=== PATIENT | male | born 1935 | race Caucasian/White ===

== ENCOUNTER 2023-10-03 22:01 | Emergency (ER) | payer MEDICARE, SELFPAY ==
--- NOTE | ~2023-10-03 | CT_ITS ---
EXAMINATION: CT brain wo con DATE: 10/04/2023 00:38 INDICATION: Head injury. TECHNIQUE: Computed tomography (CT) of the head was performed without intravenous contrast. The mA wa s adjusted according to patient size. Iterative reconstruction technique was employed. The dose-lengt h product was 605.33 mGy-cm. COMPARISON: None FINDINGS: There are old lacunar infarcts in the bilateral thalami and bilateral basal ganglia. There are scattered areas of low attenuation in the cerebral white matter. There is no intracranial hemorrh age, acute infarction, or abnormal intracranial mass lesion. The ventricles are normal in size. There are likely changes of ocular lens replacement surgeries. There is mild mucosal thickening in the eth moid sinuses. The mastoid air cells are normal. There is cerumen in the external auditory canals. IMPRESSION: 1. 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 2. Moderate nonspecific cerebral white matter disease, which likely represents chronic small vessel i schemic disease. Reviewed, dictated and finalized at location A. IMPRESSION: 1. 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 2. Moderate nonspecific cerebral white matter disease, which likely represents chronic small vessel ischemic disease.
--- NOTE | ~2023-10-03 | XR_ITS ---
EXAMINATION: XR chest 1V portable DATE: 10/04/2023 00:40 INDICATION: Weakness. Fall. TECHNIQUE: A single frontal view of the chest was obtained. COMPARISON: None. FINDINGS: There is mild atelectasis at the lung bases. No pleural effusion or pneumothorax. The heart size is normal. A skinfold overlies right hemithorax. IMPRESSION: 1. Mild atelectasis at the lung bases. Reviewed, dictated and finalized at location A.
[2023-10-03 22:04] VITALS: BP 112/62; PULSE 81; RESP 18; TEMP 36.1; O2SAT 100
[2023-10-03 23:59] VITALS: PULSE 91
[2023-10-04 00:04] VITALS: BP 121/77; PULSE 83; RESP 17; O2SAT 99
--- NOTE | 2023-10-04 00:13 | ECG_ITS ---
Test Date: 2023-10-04 01:20:16 Measurements Intervals [place] Rate: 73 P: 28 DC: 153 QRS: -22 QRSD: 90 T: 9 QT: 342 QTc: 379 Interpretive Statements SINUS RHYTHM WITH OCCASIONAL VENTRICULAR PREMATURE COMPLEXES POSSIBLE ANTERIOR MYOCARDIAL INFARCTION , OF INDETERMINATE AGE [30 ms Q WAVE IN V3/V4, OR R < 0.2 mV IN V4] No previous ECG available for comparison Electronically Signed On 10-04-2023 14:45:09 CDT by Elyse Humphries M.D.
--- NOTE | 2023-10-04 00:35 | ED_ITS ---
HPI - General Adult General Chief complaint: Weakness Stated complaint: WEAKNESS, INCREASING FALLS Time Seen by Provider: 10/04/23 00:05 History of Present Illness HPI narrative: patient 88-year-old gentleman presents emergency department chief complaint of falls. Patient is resident of [facility] and has had several falls today the patient states he lost his balance had no loss of consciousness reports he was using his walker the patient reports he does fall a fair amount of times the patient is not on blood thinners reports that he really does not know why they sent him to the emergency department. Related Data Allergies Allergy/AdvReac Type Severity Reaction Status Date / Time No Known Allergies Allergy Verified 10/04/23 00:03 Review of Systems Review of Systems: A 10 system review of systems was completed on the patient and is negative except for what is stated in the HPI. Nursing and ancillary documentation was reviewed. Exam Narrative: GENERAL: Well-appearing, well-nourished, and in no acute distress. HEAD: Normocephalic, There is a small abrasion present left forehead. EYES: PERRLA and EOMI. ENT: Nares clear, no rhinorrhea or epistaxis. Mucous membranes moist. NECK: Supple. CHEST: Clear to auscultation. No respiratory distress. HEART: Regular rate and rhythm. No murmur heard. Normal peripheral pulses. ABDOMEN: Soft, nontender, nondistended, normal active bowel sounds. EXTREMITIES: Normal range of motion there is bruising present to the left forearm there is a small skin tear present on the left forearm. No edema. SKIN: Warm, dry, no rash. NEURO: No focal deficits. Alert and oriented x3. PSYCH: Normal mood and affect. Course Vital Signs Vital signs: Vital Signs Temperature 36.1 C L 10/03/23 22:04 Pulse Rate 81 10/03/23 22:04 Respiratory Rate 18 10/03/23 22:04 Blood Pressure 112/62 10/03/23 22:04 Pulse Oximetry 100 10/03/23 22:04 Oxygen Delivery Room Air 10/03/23 22:04 Temperature 36.1 C L 10/03/23 22:04 Pulse Rate 73 10/04/23 04:18 Respiratory Rate 14 10/04/23 04:18 Blood Pressure 115/84 10/04/23 04:18 Pulse Oximetry 98 10/04/23 04:18 Oxygen Delivery Room Air 10/03/23 22:04 Medical Decision Making MDM Narrative Medical decision making narrative: differential diagnosis includes head injury, intracranial hemorrhage, electrolyte abnormality, dehydration laboratory studies showed a normal CBC normal CMP chest x-ray showed no focal infiltrate CT head showed no acute hemorrhage Vital Signs Vital Signs: Vital Signs Temperature 36.1 C L 10/03/23 22:04 Pulse Rate 81 10/03/23 22:04 Respiratory Rate 18 10/03/23 22:04 Blood Pressure 112/62 10/03/23 22:04 Pulse Oximetry 100 10/03/23 22:04 Oxygen Delivery Room Air 10/03/23 22:04 Temperature 36.1 C L 10/03/23 22:04 Pulse Rate 73 10/04/23 04:18 Respiratory Rate 14 10/04/23 04:18 Blood Pressure 115/84 10/04/23 04:18 Pulse Oximetry 98 10/04/23 04:18 Oxygen Delivery Room Air 10/03/23 22:04 Lab Data 10/04/23 00:58 10/04/23 00:58 Labs: Lab Results 10/04/23 Range/Units 00:58 WBC 8.8 (4.5-10.0) K/mm3 RBC 3.57 L (4.6-6.20) M/mm3 Hgb 10.6 L (14.0-18.0) g/dL Hct 33.3 L (42.0-52.0) % MCV 93.3 (80-100) fl MCH 29.7 (26-34) pg MCHC 31.8 L (32-36) g/dl RDW 14.0 (11.5-14.5) % Plt Count 204 (150-375) k/mm3 MPV 9.6 (7.4-10.4) fl Immature Gran % (Auto) 0.6 H (0-0.5) % Neut % (Auto) 78.0 H (45.5-73.1) % Lymph % (Auto) 9.8 L (18.3-44.2) % [place] % (Auto) 9.1 H (2.6-8.5) % Eos % (Auto) 2.0 (0-4.4) % Baso % (Auto) 0.5 (0.2-1.2) % Lymph # (Auto) 0.86 L (0.9-3.2) K/mm3 [place] # (Auto) 0.8 H (0.1-0.6) K/mm3 Eos # (Auto) 0.2 (0-0.3) K/mm3 Baso # (Auto) 0.0 (0.0-0.1) K/mm3 Abs Immat Gran (auto) 0.05 H (0.00-0.031) K/mm3 Absolute Neuts (auto) 6.9 H (1.3-6.7) K/mm3 Absolute Nucleated RBC 0.000 (0.0-0.012) K/mm3 Nucleated RBC % 0.0 (0.0-0.2) % Sodium 137 (137-145) mmol/L Potassium 4.1 (3.4-5.0) mmol/L Chloride 102 (98-107) mmol/L Carbon Dioxide 29 (22-30) mmol/L Anion Gap 6 (4-12) mmol/L BUN 29 H (9-20) mg/dL Creatinine 1.30 (0.7-1.3) mg/dL Estim Creat Clear Calc 36 ml/min Estimated GFR 52 L (59 - ) Glucose 106 (65-110) mg/dL Lactic Acid 0.8 (0.7-2.0) mmol/L Calcium 8.6 (8.4-10.2) mg/dL Total Bilirubin 0.4 (0.2-1.3) mg/dL AST 23 (17-59) U/L ALT 14 (6-50) U/L Alkaline Phosphatase 87 (38-126) U/L Total Protein 7.0 (6.3-8.2) g/dL Albumin 3.0 L (3.5-5.1) g/dL Discharge Plan Discharge Clinical Impression: Head injury, Abrasion of scalp, Skin tear of left forearm without complication, Fall from ground level Patient Disposition: [facility]As[facility] Living Condition: Stable Instructions: Antibiotic Form, Head Injury (ED), Skin Tear (ED), Fall Prevention (ED) Follow-up/Referrals: Pendegraft,VINEET Angel [Primary Care Provider] - Time of Disposition: 04:42
[2023-10-04] MEDS: TETANUS,DIPHTHERIA,AC PERTUSSIS ADULT (0.5 ML) BOOSTRIX IM (01:01)
[2023-10-04 01:03] LABS: Basophils Percent Auto 0.5 % (0.2-1.2); Eosinophils Absolute Auto 0.2 K/mm3 (0-0.3); Hematocrit 33.3 % (42.0-52.0); Hemoglobin 10.6 g/dL (14.0-18.0); Immature Granulocyte Absolute 0.05 K/mm3 (0.00-0.031); Immature Granulocyte Percent A 0.6 % (0-0.5); Lymphocytes Absolute Auto 0.86 K/mm3 (0.9-3.2); Lymphocytes Percent Auto 9.8 % (18.3-44.2); Mean Corpuscular HGB Conc 31.8 g/dl (32-36); Mean Corpuscular Hemoglobin 29.7 pg (26-34); Mean Corpuscular Volume 93.3 fl (80-100); Mean Platelet Volume 9.6 fl (7.4-10.4); Monocytes Absolute Auto 0.8 K/mm3 (0.1-0.6); Monocytes Percent Auto 9.1 % (2.6-8.5); Neutrophils Absolute Auto 6.9 K/mm3 (1.3-6.7); Platelet Count Result 204 k/mm3 (150-375); Red Blood Count 3.57 M/mm3 (4.6-6.20); White Blood Count 8.8 K/mm3 (4.5-10.0)
[2023-10-04 01:08] VITALS: BP 110/74; PULSE 79; RESP 18; O2SAT 98
[2023-10-04 01:16] LABS: Alanine Aminotransferase 14 U/L (6-50); Alkaline Phosphatase 87 U/L (38-126); Anion Gap 6 mmol/L (4-12); Aspartate Amino Transferase 23 U/L (17-59); Bilirubin,Total 0.4 mg/dL (0.2-1.3); Blood Urea Nitrogen 29 mg/dL (9-20); Calcium 8.6 mg/dL (8.4-10.2); Carbon Dioxide 29 mmol/L (22-30); Chloride 102 mmol/L (98-107); Estimated CRCL calculation 36 ml/min; Estimated Glomerular Filt Rate 52; Glucose 106 mg/dL (65-110); Lactic Acid Reflex 0.8 mmol/L (0.7-2.0); Potassium 4.1 mmol/L (3.4-5.0); Sodium 137 mmol/L (137-145)
--- NOTE | 2023-10-04 01:23 | PC.NURSE ---
Pt very angrily denied wound cleansing and straight cath to obtain urine sample at this time. ED emergency services director notified.
[2023-10-04 04:18] VITALS: BP 115/84; PULSE 73; RESP 14; O2SAT 98
--- NOTE | 2023-10-04 05:04 | PC.NURSE ---
Attempted to call [facility] of [facility] to give nurse report with no answer.
--- NOTE | 2023-10-04 07:28 | PC.NURSE ---
This RN took over care of patient at 0715
[2023-10-04 07:33] VITALS: BP 120/82; PULSE 76; RESP 16; O2SAT 95
--- NOTE | 2023-10-04 09:38 | PC.NURSE ---
Spoke with Christianne from [facility] for report
== END 2023-10-04 09:45 ==
PROVIDERS: Emergency Provider Emergency Medicine; PCP Nurse Practitioner Family
DX: S00.01XA Abrasion of scalp, initial encounter (principal); S51.812A Laceration without foreign body of left forearm, initial encounter; Z23 Encounter for immunization; W18.30XA Fall on same level, unspecified, initial encounter
CPT/HCPCS: 36415; 70450; 71045; 80053; 83605; 85025; 90471; 90715; 93005; 99284

== ENCOUNTER 2023-12-07 13:48 | Emergency (ER) | payer MEDICARE, SELFPAY ==
--- NOTE | ~2023-12-07 | XR_ITS ---
XR chest 1V portable 12/07/2023 15:08 Indication: Syncope Procedure: AP portable chest Comparison: 10/04/2023 Findings: Borderline heart size. There is mild interstitial edema. Small left pleural effusion. There is atherosclerosis and ectasia of the aorta. Impression: 1: Mild interstitial edema. Reviewed, dictated and finalized at location B. Impression: 1: Mild interstitial edema.
[2023-12-07 13:57] VITALS: BP 104/66; PULSE 58; RESP 13; TEMP 36.9; O2SAT 96
--- NOTE | 2023-12-07 14:04 | ECG_ITS ---
Test Date: 2023-12-07 14:09:53 Measurements Intervals [place] Rate: 54 P: 26 [place]: 160 QRS: -16 QRSD: 93 T: 5 QT: 414 QTc: 396 Interpretive Statements SINUS BRADYCARDIA LOW QRS VOLTAGE IN PRECORDIAL LEADS [QRS DEFLECTION < 1.0 mV IN CHEST LEADS] POSSIBLE ANTERIOR MYOCARDIAL INFARCTION , OF INDETERMINATE AGE [30 ms Q WAVE IN V3/V4, OR R < 0.2 mV IN V4] ABNORMAL ECG Compared to ECG 10/04/2023 01:20:16 Low QRS voltage now present Sinus rhythm no longer present Ventricular premature complex(es) no longer present Myocardial infarct finding still present Electronically Signed On 12-08-2023 13:04:21 CDT by Derrick Guerrero M.D.
[2023-12-07 14:10] VITALS: BP 104/66; PULSE 54; RESP 13; O2SAT 100
[2023-12-07 15:03] LABS: Basophils Percent Auto 0.6 % (0.2-1.2); Eosinophils Absolute Auto 0.1 K/mm3 (0-0.3); Eosinophils Percent Auto 1.4 % (0-4.4); Hematocrit 36.1 % (42.0-52.0); Hemoglobin 11.9 g/dL (14.0-18.0); Immature Granulocyte Absolute 0.03 K/mm3 (0.00-0.031); Immature Granulocyte Percent A 0.5 % (0-0.5); Lymphocytes Absolute Auto 0.54 K/mm3 (0.9-3.2); Lymphocytes Percent Auto 8.2 % (18.3-44.2); Mean Corpuscular Hemoglobin 29.8 pg (26-34); Mean Corpuscular Volume 90.5 fl (80-100); Mean Platelet Volume 10.2 fl (7.4-10.4); Monocytes Absolute Auto 0.5 K/mm3 (0.1-0.6); Neutrophils Absolute Auto 5.4 K/mm3 (1.3-6.7); Neutrophils Percent Auto 81.3 % (45.5-73.1); Platelet Count Result 154 k/mm3 (150-375); Red Blood Count 3.99 M/mm3 (4.6-6.20); Red Cell Distribution Width 15.4 % (11.5-14.5); White Blood Count 6.6 K/mm3 (4.5-10.0)
[2023-12-07 15:18] LABS: Alanine Aminotransferase 11 U/L (6-50); Albumin Level 3.2 g/dL (3.5-5.1); Alkaline Phosphatase 75 U/L (38-126); Anion Gap 6 mmol/L (4-12); Aspartate Amino Transferase 18 U/L (17-59); Bilirubin,Total 0.5 mg/dL (0.2-1.3); Blood Urea Nitrogen 29 mg/dL (9-20); Calcium 8.6 mg/dL (8.4-10.2); Carbon Dioxide 27 mmol/L (22-30); Chloride 104 mmol/L (98-107); Estimated CRCL calculation 34 ml/min; Estimated Glomerular Filt Rate 57; Glucose 140 mg/dL (65-110); Potassium 3.9 mmol/L (3.4-5.0); Sodium 137 mmol/L (137-145)
[2023-12-07 16:29] VITALS: BP 110/65; PULSE 64
--- NOTE | 2023-12-07 17:37 | ED.GENADULT ---
HPI - General Adult General Chief complaint: Syncope Stated complaint: syncope Time Seen by Provider: 12/07/23 15:17 History of Present Illness HPI narrative: Patient is an 88-year-old male who presents ER from his facility after having syncopal episode while using the restroom. The patient then had episodes of vomiting. No reports of trauma or injury. Patient is awake alert orient x2 this time. He is very graft/angry. He is refusing lab testing. He is moving all extremities well. Related Data Allergies Allergy/AdvReac Type Severity Reaction Status Date / Time No Known Allergies Allergy Verified 10/04/23 00:03 Review of Systems Review of Systems: ROS unobtainable: Yes unobtainable due to mental status Exam Narrative: GENERAL: Well-appearing, well-nourished, and in no acute distress. HEAD: Normocephalic, atraumatic. ENT: Mucous membranes moist. CHEST: Clear to auscultation. No respiratory distress. HEART: Regular rate and rhythm. Normal peripheral pulses. ABDOMEN: Soft, nontender, nondistended. EXTREMITIES: Normal range of motion. No edema. SKIN: Warm, dry, no rash. NEURO: Alert and oriented x2. PSYCH: Normal mood and affect. Course Course Emergency Course: Patient's blood pressure has improved with IV fluid. He is unable to stand but is nonambulatory baseline according family. He is oriented x2. He is grumpy and not wanting to allow care which family reports is consistent with his general demeanor. Vital Signs Vital signs: Vital Signs Temperature 98.5 F 12/07/23 13:57 Pulse Rate 58 L 12/07/23 13:57 Respiratory Rate 13 12/07/23 13:57 Blood Pressure 104/66 12/07/23 13:57 Pulse Oximetry 96 12/07/23 13:57 Temperature 98.5 F 12/07/23 13:57 Pulse Rate 67 12/07/23 20:52 Respiratory Rate 18 12/07/23 20:52 Blood Pressure 118/60 12/07/23 20:52 Pulse Oximetry 94 12/07/23 20:52 Medical Decision Making Vital Signs Vital Signs: Vital Signs Temperature 98.5 F 12/07/23 13:57 Pulse Rate 58 L 12/07/23 13:57 Respiratory Rate 13 12/07/23 13:57 Blood Pressure 104/66 12/07/23 13:57 Pulse Oximetry 96 12/07/23 13:57 Temperature 98.5 F 12/07/23 13:57 Pulse Rate 67 12/07/23 20:52 Respiratory Rate 18 12/07/23 20:52 Blood Pressure 118/60 12/07/23 20:52 Pulse Oximetry 94 12/07/23 20:52 Lab Data 12/07/23 14:56 12/07/23 14:56 Labs: Lab Results 12/07/23 Range/Units 14:56 WBC 6.6 (4.5-10.0) K/mm3 RBC 3.99 L (4.6-6.20) M/mm3 Hgb 11.9 L (14.0-18.0) g/dL Hct 36.1 L (42.0-52.0) % MCV 90.5 (80-100) fl MCH 29.8 (26-34) pg MCHC 33.0 (32-36) g/dl RDW 15.4 H (11.5-14.5) % Plt Count 154 (150-375) k/mm3 MPV 10.2 (7.4-10.4) fl Immature Gran % (Auto) 0.5 (0-0.5) % Neut % (Auto) 81.3 H (45.5-73.1) % Lymph % (Auto) 8.2 L (18.3-44.2) % [place] % (Auto) 8.0 (2.6-8.5) % Eos % (Auto) 1.4 (0-4.4) % Baso % (Auto) 0.6 (0.2-1.2) % Lymph # (Auto) 0.54 L (0.9-3.2) K/mm3 [place] # (Auto) 0.5 (0.1-0.6) K/mm3 Eos # (Auto) 0.1 (0-0.3) K/mm3 Baso # (Auto) 0.0 (0.0-0.1) K/mm3 Abs Immat Gran (auto) 0.03 (0.00-0.031) K/mm3 Absolute Neuts (auto) 5.4 (1.3-6.7) K/mm3 Absolute Nucleated RBC 0.000 (0.0-0.012) K/mm3 Nucleated RBC % 0.0 (0.0-0.2) % Sodium 137 (137-145) mmol/L Potassium 3.9 (3.4-5.0) mmol/L Chloride 104 (98-107) mmol/L Carbon Dioxide 27 (22-30) mmol/L Anion Gap 6 (4-12) mmol/L BUN 29 H (9-20) mg/dL Creatinine 1.20 (0.7-1.3) mg/dL Estim Creat Clear Calc 34 ml/min Estimated GFR 57 L (59 - ) Glucose 140 H (65-110) mg/dL Calcium 8.6 (8.4-10.2) mg/dL Total Bilirubin 0.5 (0.2-1.3) mg/dL AST 18 (17-59) U/L ALT 11 (6-50) U/L Alkaline Phosphatase 75 (38-126) U/L Total Protein 7.0 (6.3-8.2) g/dL Albumin 3.2 L (3.5-5.1) g/dL Imaging Data Radiologist's impression: ITS Impressions Chest X-Ray 12/07/23 15:10 Impression: 1: Mild interstitial edema. Discharge Plan Discharge Clinical Impression: Vasovagal syncope Patient Disposition: Home, Self-Care Condition: Stable Instructions: Syncope (ED) Additional Instructions: You had low blood pressure that responded to IV fluid. Your blood work was within normal limits for yourself. Return the ER if you have recurrent loss of consciousness, he developed chest pain, or you have additional concerns. Follow-up/Referrals: Pendegragiovanna,VINEET Angel [Primary Care Provider] - 1 Week
[2023-12-07 20:52] VITALS: BP 118/60; PULSE 67; RESP 18; O2SAT 94
== END 2023-12-07 20:35 | disposition home or self-care (01) ==
PROVIDERS: Emergency Provider Emergency Medicine; PCP Nurse Practitioner Family
DX: R55 Syncope and collapse (principal); R00.1 Bradycardia, unspecified; R94.31 Abnormal electrocardiogram [ECG] [EKG]; J81.1 Chronic pulmonary edema
CPT/HCPCS: 36415; 71045; 80053; 85025; 93005; 99284

== ENCOUNTER 2024-01-18 09:48 | Emergency (ER) | payer MEDICARE, SELFPAY ==
--- NOTE | ~2024-01-18 | CT_ITS ---
EXAMINATION: CT brain wo con DATE: 01/18/2024 12:06 INDICATION: Altered mental status. Syncope. TECHNIQUE: Computed tomography (CT) of the head was performed without intravenous contrast. The mA wa s adjusted according to patient size. Iterative reconstruction technique was employed. The dose-lengt h product was 681.00 mGy-cm. COMPARISON: Head CT 10/04/2023 FINDINGS: There are old infarcts in the bilateral thalami and bilateral basal ganglia. There are scat tered areas of low attenuation in the cerebral white matter. There is no intracranial hemorrhage, acu te infarction, or abnormal intracranial mass lesion. The ventricles are normal in size. There are lik teja changes of ocular lens replacement surgeries. The paranasal sinuses are clear. The mastoid air ce lls are normal. There is cerumen in the external auditory canals. IMPRESSION: 1. 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 2. Stable moderate nonspecific cerebral white matter disease, which likely represents chronic small v essel ischemic disease. Reviewed, dictated and finalized at location A. /ENDANGERED SPECIES SPECIALIST IMPRESSION: 1. 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 2. Stable moderate nonspecific cerebral white matter disease, which likely repr esents chronic small vessel ischemic disease.
--- NOTE | ~2024-01-18 | XR_ITS ---
EXAMINATION: XR chest 2V DATE: 01/18/2024 10:58 INDICATION: Syncope. TECHNIQUE: Frontal and lateral views of the chest were obtained. COMPARISON: Chest single view 12/07/2023 FINDINGS: There is mild atelectasis versus scarring in the lower lung zones. No pleural effusion or p neumothorax. A calcified left lung nodule is consistent with old granulomatous disease. The heart siz e is normal. There is a moderate-sized hiatal hernia. IMPRESSION: 1. Mild atelectasis versus scarring in the lower lung zones. 2. Moderate-sized hiatal hernia. Reviewed, dictated and finalized at location A. T SPECIALIST
--- NOTE | ~2024-01-18 | CT_ITS ---
EXAMINATION: CT cervical spine wo con DATE: 01/18/2024 12:06 INDICATION: Syncope. TECHNIQUE: Computed tomography (CT) of the cervical spine was performed without intravenous contrast. Automated exposure control and iterative reconstruction technique were employed. The dose-length pro duct was 291.03 mGy-cm. COMPARISON: None FINDINGS: Calcified right lung nodules are consistent with old granulomatous disease. There is 16 deg mason dextroscoliosis of cervical spine. There is 2 mm retrolisthesis of C3 on C4 and C4 on C5. Verteb ral body heights are normal. There is severely decreased disc height from C3-C4 through C6-C7. The fo llowing disc levels are specifically discussed: C2-C3: There is no uncovertebral joint osteoarthritis. There is severe bilateral facet joint osteoart hritis. There is no neural foraminal stenosis. There is no central canal stenosis. C3-C4: There is severe bilateral uncovertebral joint osteoarthritis. There is severe bilateral facet joint osteoarthritis. There is mild bilateral neural foraminal stenosis. There is mild central canal stenosis. C4-C5: There is severe bilateral uncovertebral joint osteoarthritis. There is severe right and modera te left facet joint osteoarthritis. There is mild bilateral neural foraminal stenosis. There is mild central canal stenosis. C5-C6: There is moderate left uncovertebral joint osteoarthritis. There is moderate right and severe left facet joint osteoarthritis. There is mild left neural foraminal stenosis. There is no central ca nal stenosis. C6-C7: There is severe bilateral uncovertebral joint osteoarthritis. There is moderate right and manjula re left facet joint osteoarthritis. There is mild bilateral neural foraminal stenosis. There is mild central canal stenosis. C7-T1: There is no uncovertebral joint osteoarthritis. There is mild bilateral facet joint osteoarthr itis. There is no neural foraminal stenosis. There is no central canal stenosis. IMPRESSION: 1. No fracture. 2. Severe cervical spondylosis. 3. Cervical dextroscoliosis. Reviewed, dictated and finalized at location A. CAL OFFICE SCHEDULER
[2024-01-18 09:48] VITALS: BP 102/63; PULSE 95; RESP 26; TEMP 36.2; O2SAT 99
--- NOTE | 2024-01-18 10:00 | ECG_ITS ---
Test Date: 2024-01-18 10:01:41 Measurements Intervals [place] Rate: 64 P: -7 [place]: 171 QRS: -15 QRSD: 90 T: -11 QT: 393 QTc: 406 Interpretive Statements SINUS RHYTHM LOW QRS VOLTAGE IN PRECORDIAL LEADS [QRS DEFLECTION < 1.0 mV IN CHEST LEADS] POSSIBLE ANTERIOR MYOCARDIAL INFARCTION, PROBABLY OLD NONSPECIFIC ST AND T WAVE ABNORMALITY Compared to ECG 12/07/2023 14:09:53 NO SIGNIFICANT CHANGES Electronically Signed On 01-18-2024 12:55:12 [place] by Elyse Humphries M.D.
[2024-01-18 10:30] LABS: Alanine Aminotransferase 13 U/L (6-50); Albumin Level 3.3 g/dL (3.5-5.1); Alkaline Phosphatase 70 U/L (38-126); Anion Gap 4 mmol/L (4-12); Aspartate Amino Transferase 21 U/L (17-59); Bilirubin,Total 0.5 mg/dL (0.2-1.3); Blood Urea Nitrogen 30 mg/dL (9-20); Calcium 8.6 mg/dL (8.4-10.2); Carbon Dioxide 26 mmol/L (22-30); Chloride 107 mmol/L (98-107); Estimated CRCL calculation 32 ml/min; Estimated Glomerular Filt Rate 52; Glucose 143 mg/dL (65-110); Potassium 3.6 mmol/L (3.4-5.0); Sodium 137 mmol/L (137-145)
[2024-01-18 10:46] LABS: Basophils Percent Auto 0.5 % (0.2-1.2); Eosinophils Absolute Auto 0.2 K/mm3 (0-0.3); Hematocrit 37.5 % (42.0-52.0); Hemoglobin 12.2 g/dL (14.0-18.0); Immature Granulocyte Absolute 0.02 K/mm3 (0.00-0.031); Immature Granulocyte Percent A 0.3 % (0-0.5); Lymphocytes Absolute Auto 0.73 K/mm3 (0.9-3.2); Mean Corpuscular HGB Conc 32.5 g/dl (32-36); Mean Corpuscular Hemoglobin 29.9 pg (26-34); Mean Corpuscular Volume 91.9 fl (80-100); Mean Platelet Volume 11.2 fl (7.4-10.4); Monocytes Absolute Auto 0.5 K/mm3 (0.1-0.6); Monocytes Percent Auto 6.7 % (2.6-8.5); Neutrophils Absolute Auto 5.9 K/mm3 (1.3-6.7); Neutrophils Percent Auto 80.5 % (45.5-73.1); Platelet Count Result 161 k/mm3 (150-375); Red Blood Count 4.08 M/mm3 (4.6-6.20); Red Cell Distribution Width 15.2 % (11.5-14.5); White Blood Count 7.3 K/mm3 (4.5-10.0)
--- NOTE | 2024-01-18 11:40 | ED.SYNCOPE ---
HPI - Syncope General Chief Complaint: Syncope Stated Complaint: flu like sx & syncope Time Seen by Provider: 01/18/24 10:34 Source: patient, family (via phone), EMS and RN notes reviewed Mode of arrival: EMS Limitations: dementia History of Present Illness HPI narrative: Patient presents after report of syncope while having a bowel movement. there was a denial that there was any fall. Care resides at assisted living facility and is reportedly alert oriented x1 but normally more so. Patient denies any symptoms. He states he is not in any pain other than back pain which is chronic. He does not have a headache, chest pain, abdominal pain. He is not short of breath. He denies any nausea, vomiting, diarrhea, or bloody stool or constipation. He states I'm bored. He denies loss of consciousness. Related Data Allergies Allergy/AdvReac Type Severity Reaction Status Date / Time Sulfa (Sulfonamide Allergy Unknown Verified 01/18/24 10:01 Antibiotics) PMFSH Past Medical History Medical History COVID-19 vaccine administered Moderna 05/11/20 + 06/07/20 Depression Influenza vaccine administered 11/08/22 Lobar pneumonia Moderate protein-calorie malnutrition Repeated falls Vitamin B12 deficiency Social History Social History Social History: DNR per correction documentation, selective treatment Living arrangements: assisted living Additional living arrangements comments: [facility] since 09/10/2023 Spiritual care concerns: No (Mandaen) Exam Narrative: GENERAL: Well-appearing, well-nourished, and in no acute distress. HEAD: Normocephalic, atraumatic. EYES: Non injected, non icteric ENT: Nares clear, no rhinorrhea or epistaxis. NECK: Supple. CHEST: Speaking in full sentences. initially reported as tachypneic however No respiratory distress. HEART: Regular rate and rhythm. ABDOMEN: Soft, nondistended. EXTREMITIES: Normal range of motion. No lower extremity edema. SKIN: Warm, dry, no rash. NEURO: No focal deficits. Alert and oriented x3. PSYCH: Normal mood and affect. Course Vital Signs Vital signs: Vital Signs Temperature 97.2 F L 12/06/24 09:48 Pulse Rate 95 01/18/24 09:48 Respiratory Rate 26 H 01/18/24 09:48 Blood Pressure 102/63 01/18/24 09:48 Pulse Oximetry 99 01/18/24 09:48 Temperature 97.2 F L 01/18/24 09:48 Pulse Rate 63 01/18/24 13:06 Respiratory Rate 12 01/18/24 13:06 Blood Pressure 106/63 01/18/24 13:06 Pulse Oximetry 98 01/18/24 13:06 MDM - Syncope MDM Narrative Medical decision making narrative: patient presents with report syncope while having a bowel movement without any fall at the assisted living facility where he resides. There is also report that he is less oriented than typical. Patient denies any loss of consciousness and has no complaints other than his chronic back pain she has been made worse while waiting in the hospital bed. In the emergency department he is afebrile with vital signs notable for tachypnea. Because the biphasic nature V3 on his EKG (concerning for possible [facility]), this will be repeated. Repeat appears ok. Patient has normocytic anemia, stable from previous. No leukocytosis or thrombocytopenia. He has moderate sized hiatal hernia seen on chest x-ray. Will give omeprazole; this medication does not appear on correction medication list. Hyperglycemia without anion gap acidosis. He has hypoalbuminemia as well as an azotemia. All 3 of these have been seen on previous labs. ProBNP is elevated to degree to suggest acute heart failure, no prior for comparison and this diagnosis is not listed on his PMH from assisted living. [place] Syncope Rule: Congestive heart failure history: Not previously but BNP elevated Hematocrit <30%: 0 EKG abnormal: 0 (sinus rhythm) SOB symptoms: 0 SBP <90mmHg at triage: 0 TSH is elevated however with normal T4 which likely represent subclinical hypothyroidism verses recovery from euthyroid sick syndrome. Spoke with nephew Jaydon Herrera. Was not aware he was in the ED. History of cancer multiple times but family not involved in decisions at that time/treatments/etc.. Lived independently prior to moving him to facility in summer. History of hoarding; had lived 3 hours away previously and was in a facility in [facility] and moved him to [place] but no changes clinically. Eats and sleeps predominantly. Spoke with patient's other nephew Derrek Javier who does concur with Jaydon that in general they let Alonso make his own decisions health if he would prefer to go back to the facility I think that is reasonable and in line with his goals/values/wishes/desires. Differential Diagnosis Differential diagnosis: Likely syncope due to orthostatic hypotension, vasovagal syncope, complete atrioventricular block, subarachnoid hemorrhage and dehydration Lab Data 01/18/24 10:08 01/18/24 10:08 Labs: Lab Results 01/18/24 01/18/24 01/18/24 Range/Units 10:08 11:43 12:26 WBC 7.3 (4.5-10.0) K/mm3 RBC 4.08 L (4.6-6.20) M/mm3 Hgb 12.2 L (14.0-18.0) g/dL Hct 37.5 L (42.0-52.0) % MCV 91.9 (80-100) fl MCH 29.9 (26-34) pg MCHC 32.5 (32-36) g/dl RDW 15.2 H (11.5-14.5) % Plt Count 161 (150-375) k/mm3 MPV 11.2 H (7.4-10.4) fl Immature Gran % (Auto) 0.3 (0-0.5) % Neut % (Auto) 80.5 H (45.5-73.1) % Lymph % (Auto) 10.0 L (18.3-44.2) % [place] % (Auto) 6.7 (2.6-8.5) % Eos % (Auto) 2.0 (0-4.4) % Baso % (Auto) 0.5 (0.2-1.2) % Lymph # (Auto) 0.73 L (0.9-3.2) K/mm3 [place] # (Auto) 0.5 (0.1-0.6) K/mm3 Eos # (Auto) 0.2 (0-0.3) K/mm3 Baso # (Auto) 0.0 (0.0-0.1) K/mm3 Abs Immat Gran (auto) 0.02 (0.00-0.031) K/mm3 Absolute Neuts (auto) 5.9 (1.3-6.7) K/mm3 Absolute Nucleated RBC 0.000 (0.0-0.012) K/mm3 Nucleated RBC % 0.0 (0.0-0.2) % PT 14.2 (11.1-14.7) Seconds INR 1.1 APTT 29.1 (22.3-36.8) Seconds Sodium 137 (137-145) mmol/L Potassium 3.6 (3.4-5.0) mmol/L Chloride 107 (98-107) mmol/L Carbon Dioxide 26 (22-30) mmol/L Anion Gap 4 (4-12) mmol/L BUN 30 H (9-20) mg/dL Creatinine 1.30 (0.7-1.3) mg/dL Estim Creat Clear Calc 32 ml/min Estimated GFR 52 L (59 - ) Glucose 143 H (65-110) mg/dL Calcium 8.6 (8.4-10.2) mg/dL Total Bilirubin 0.5 (0.2-1.3) mg/dL AST 21 (17-59) U/L ALT 13 (6-50) U/L Alkaline Phosphatase 70 (38-126) U/L Troponin I < 0.012 (0.000-0.034) ng/mL NT-Pro-B Natriuret Pep 2050 H (19.9-100) pg/mL Total Protein 6.0 L (6.3-8.2) g/dL Albumin 3.3 L (3.5-5.1) g/dL TSH 8.560 H (0.465-4.680) uIU/mL Free T4 1.17 (0.78-2.19) ng/dL Free T3 pg/mL 3.2 (2.3-4.2) pg/mL Urine Color (Yellow) Urine Appearance (Clear) Urine pH (5.0-9.0) Ur Specific [place] (1.001-1.035) Urine Protein (Negative) mg/dL Urine Glucose (UA) (Negative) mg/dL Urine Ketones (Negative) mg/dL Ur Blood (Man) (Negative) Urine Nitrate (Negative) Urine Bilirubin (Negative) Urine Urobilinogen (<2.0) mg/dL Add Ur Microanalysis Leukocyte Esterase Rfl (Negative) JOSÉ/UL Urine RBC (0-2) /hpf Urine WBC (0-3) /hpf Ur Squamous Epith Cells (Few) /hpf Amorphous Sediment (None) Urine Bacteria /hpf Urine Casts Hyaline Casts (None) /lpf Urine Mucus /lpf Salicylates < 1.0 L (2-20) mg/dL Urine Opiates Screen (Negative) Urine Methadone Screen (Negative) Acetaminophen < 10 L (10-30) ug/mL Ur Barbiturates Screen (Negative) Ur Phencyclidine Scrn (Negative) Ur Amphetamine Screen (Negative) U Benzodiazepines Scrn (Negative) Urine Cocaine Screen (Negative) U Cannabinoids Screen (Negative) Ethyl Alcohol < 10 (<10) mg/dL Influenza A (RT-PCR) Negative (Negative) Influenza B (RT-PCR) Negative (Negative) RSV (RT-PCR) Negative (Negative) SARS-CoV-2 RNA (RT-PCR) Negative (Negative) 01/18/24 Range/Units 12:56 WBC (4.5-10.0) K/mm3 RBC (4.6-6.20) M/mm3 Hgb (14.0-18.0) g/dL Hct (42.0-52.0) % MCV (80-100) fl MCH (26-34) pg MCHC (32-36) g/dl RDW (11.5-14.5) % Plt Count (150-375) k/mm3 MPV (7.4-10.4) fl Immature Gran % (Auto) (0-0.5) % Neut % (Auto) (45.5-73.1) % Lymph % (Auto) (18.3-44.2) % [place] % (Auto) (2.6-8.5) % Eos % (Auto) (0-4.4) % Baso % (Auto) (0.2-1.2) % Lymph # (Auto) (0.9-3.2) K/mm3 [place] # (Auto) (0.1-0.6) K/mm3 Eos # (Auto) (0-0.3) K/mm3 Baso # (Auto) (0.0-0.1) K/mm3 Abs Immat Gran (auto) (0.00-0.031) K/mm3 Absolute Neuts (auto) (1.3-6.7) K/mm3 Absolute Nucleated RBC (0.0-0.012) K/mm3 Nucleated RBC % (0.0-0.2) % PT (11.1-14.7) Seconds INR APTT (22.3-36.8) Seconds Sodium (137-145) mmol/L Potassium (3.4-5.0) mmol/L Chloride (98-107) mmol/L Carbon Dioxide (22-30) mmol/L Anion Gap (4-12) mmol/L BUN (9-20) mg/dL Creatinine (0.7-1.3) mg/dL Estim Creat Clear Calc ml/min Estimated GFR (59 - ) Glucose (65-110) mg/dL Calcium (8.4-10.2) mg/dL Total Bilirubin (0.2-1.3) mg/dL AST (17-59) U/L ALT (6-50) U/L Alkaline Phosphatase (38-126) U/L Troponin I (0.000-0.034) ng/mL NT-Pro-B Natriuret Pep (19.9-100) pg/mL Total Protein (6.3-8.2) g/dL Albumin (3.5-5.1) g/dL TSH (0.465-4.680) uIU/mL Free T4 (0.78-2.19) ng/dL Free T3 pg/mL (2.3-4.2) pg/mL Urine Color Yellow (Yellow) Urine Appearance Clear (Clear) Urine pH 5.0 (5.0-9.0) Ur Specific [place] 1.028 (1.001-1.035) Urine Protein Trace (Negative) mg/dL Urine Glucose (UA) Negative (Negative) mg/dL Urine Ketones Negative (Negative) mg/dL Ur Blood (Man) 2+ H (Negative) Urine Nitrate Negative (Negative) Urine Bilirubin Negative (Negative) Urine Urobilinogen 1.0 (<2.0) mg/dL Add Ur Microanalysis Reviewed Leukocyte Esterase Rfl Negative (Negative) JOSÉ/UL Urine RBC 11-20 H (0-2) /hpf Urine WBC 0-5 (0-3) /hpf Ur Squamous Epith Cells None seen (Few) /hpf Amorphous Sediment Few H (None) Urine Bacteria None seen /hpf Urine Casts 6-10 Hyaline Casts Present (None) /lpf Urine Mucus Present /lpf Salicylates (2-20) mg/dL Urine Opiates Screen Negative (Negative) Urine Methadone Screen Negative (Negative) Acetaminophen (10-30) ug/mL Ur Barbiturates Screen Negative (Negative) Ur Phencyclidine Scrn Negative (Negative) Ur Amphetamine Screen Negative (Negative) U Benzodiazepines Scrn Negative (Negative) Urine Cocaine Screen Negative (Negative) U Cannabinoids Screen Negative (Negative) Ethyl Alcohol (<10) mg/dL Influenza A (RT-PCR) (Negative) Influenza B (RT-PCR) (Negative) RSV (RT-PCR) (Negative) SARS-CoV-2 RNA (RT-PCR) (Negative) Imaging Data Radiologist's impression: IMPRESSION: 1. Mild atelectasis versus scarring in the lower lung zones. 2. Moderate-sized hiatal hernia. IMPRESSION: 1. 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 2. Stable moderate nonspecific cerebral white matter disease, which likely represents chronic small vessel ischemic disease. IMPRESSION: 1. No fracture. 2. Severe cervical spondylosis. 3. Cervical dextroscoliosis. ECG Data EKG #1: Attestation: I personally reviewed and interpreted this ECG as follows: ECG completion date: 01/18/24 ECG completion time: 10:01 Prior ECG tracings: available for review (12/07/2023.) Interpretation: Normal sinus rhythm at a rate of 64 beats per minute. NH interval 171. QRS 90. QT/QTC 393/402. Good R-wave progression across the precordial leads. Questionable biphasic T wave in V3 though only seen in 2 complexes, not the 3rd and there is baseline wander. Will repeat. EKG #2: Attestation: I personally reviewed and interpreted this ECG as follows: ECG completion date: 01/18/24 ECG completion time: 11:47 Interpretation: Normal sinus rhythm at a rate of 60 beats per minute. NH interval 183. QRS 90. QT/QTC 370/396. Good R-wave progression across the precordial leads. T-wave inversion isolated to the 4 which was seen on EKG earlier today but not on the 1 dated 12/07/2023. Otherwise the biphasic nature of V3 that was questionably seen in the previous EKG obtained today does not appear to be present I believe that this really represented artifact. Patient also has T-wave inversion lead 3 but appears flattened verses upright in contiguous inferior leads 2 and AVF. Discharge Plan Discharge Clinical Impression: Vasovagal syncope, Normocytic anemia, Hiatal hernia, Hyperglycemia, Hypoalbuminemia, Azotemia, History of cerebral infarction, Cervical spondylosis, Microscopic hematuria, Acute heart failure Patient Disposition: [facility]Asst Living Condition: Stable Instructions: Antibiotic Form, Heart Failure (ED), Hiatal Hernia (ED), Nondiabetic Hyperglycemia (ED), Anemia (ED), Syncope in Older Adults (ED) Additional Instructions: Patient did have an elevated BNP that might represent acute heart failure however no evidence of pleural effusions or appearing volume overloaded on physical exam and he is not requiring supplemental oxygen. I did discuss with patient's nephews the believe the patient would prefer to go back to the facility which is when patient had stated independently. Otherwise, his workup did show evidence of a hiatal hernia and omeprazole could be added to his medication list if this provides symptomatic relief from this. Follow-up with facility medical imaging specialist/patient's primary care provider. Return to the emergency department with any new or worsening symptoms. Prescriptions: New omeprazole 20 mg tablet,delayed release (DR/EC) 20 mg PO DAILY Qty: 30 0RF Follow-up/Referrals: Pendender,VINEET Angel [Primary Care Provider] - Stand Alone Forms: Long Term Discharge Time of Disposition: 14:37
--- NOTE | 2024-01-18 11:43 | ECG_ITS ---
Test Date: 2024-01-18 11:47:39 Measurements Intervals [place] Rate: 68 P: 19 MS: 183 QRS: -18 QRSD: 90 T: -24 QT: 378 QTc: 405 Interpretive Statements SINUS RHYTHM LOW QRS VOLTAGE IN PRECORDIAL LEADS [QRS DEFLECTION < 1.0 mV IN CHEST LEADS] ANTEROSEPTAL MYOCARDIAL INFARCTION , OF INDETERMINATE AGE [40+ ms Q WAVE IN V1-V4] NONSPECIFIC ST AND T WAVE ABNORMALITY Compared to ECG 01/18/2024 10:01:41 NO SIGNIFICANT CHANGES Electronically Signed On 01-18-2024 13:01:06 LACING PRESSER by Elyse Humphries M.D.
[2024-01-18 12:08] LABS: Troponin I < 0.012 ng/mL (0.000-0.034)
[2024-01-18 12:17] LABS: Acetaminophen < 10 ug/mL (10-30); Ethanol < 10 mg/dL (<10); Salicylate < 1.0 mg/dL (2-20)
[2024-01-18 12:33] LABS: Influenza A QL RT-PCR Negative (Negative); Influenza B QL RT-PCR Negative (Negative); RSV RNA, RT-PCR Negative (Negative); SARS-CoV-2 RNA PCR Negative (Negative)
[2024-01-18 12:41] LABS: INR 1.1; Prothrombin Time 14.2 Seconds (11.1-14.7)
[2024-01-18 12:42] LABS: Partial Thromboplastin Time 29.1 Seconds (22.3-36.8)
[2024-01-18 12:50] LABS: NT Pro B Type Natriuretic Pept 2050 pg/mL (19.9-100)
[2024-01-18] MEDS: PANTOPRAZOLE 40 MG TABLET PO (12:55)
[2024-01-18 12:56] VITALS: BP 123/70; PULSE 73; RESP 20; O2SAT 94
[2024-01-18 13:06] VITALS: BP 106/63; PULSE 63; RESP 12; O2SAT 98
[2024-01-18 13:18] LABS: Add Urine Microscopic? YES; Amorphous Sediment Urine Few; Appearance Urine Clear (Clear); Bacteria Urine None Seen /hpf; Bilirubin Urine Negative (Negative); Blood Urine 2+ (Negative); Color Urine Yellow (Yellow); Glucose Urine UA Negative (Negative); Hyaline Casts Urine Present /lpf; Ketones Urine Negative (Negative); Leukocyte Esterase Ur Negative LEU/UL (Negative); Mucus Urine Present /lpf; Need Manual Microscopic Reviewed; Nitrate Urine Negative (Negative); Protein Urine Trace mg/dL (Negative); Specific Grav Ur 1.028 (1.001-1.035); Squamous Epithelial Cell Urine None Seen /hpf (Few); WBC Urine 0-5 /hpf (0-3)
[2024-01-18 13:40] LABS: Free T4 Free Thyroxine 1.17 ng/dL (0.78-2.19)
[2024-01-18 13:50] LABS: Amphetamine Screen Urine Negative (Negative); Barbiturate Screen Urine Negative (Negative); Benzodiazepines Screen Urine Negative (Negative); Cannabinoid Screen Urine Negative (Negative); Cocaine Screen Urine Negative (Negative); Methadone Screen Urine Negative (Negative); Opiate Screen Urine Negative (Negative); Phencyclidine Screen Urine Negative (Negative)
--- NOTE | 2024-01-18 15:05 | PC.NURSE ---
Report called to Anny at [facility]
--- NOTE | 2024-01-18 15:14 | PC.NURSE ---
pt unable to stand for orthostatic vitals
[2024-01-19 13:47] LABS: T3 Free 3.2 pg/mL (2.3-4.2)
== END 2024-01-18 16:31 ==
PROVIDERS: Emergency Provider Student in an Organized Health Care Education/Training Program; PCP Nurse Practitioner Family
DX: R55 Syncope and collapse (principal); D64.9 Anemia, unspecified; K44.9 Diaphragmatic hernia without obstruction or gangrene; R73.9 Hyperglycemia, unspecified; E88.09 Other disorders of plasma-protein metabolism, not elsewhere classified; M47.812 Spondylosis without myelopathy or radiculopathy, cervical region; R31.29 Other microscopic hematuria; I50.9 Heart failure, unspecified; E53.8 Deficiency of other specified B group vitamins
CPT/HCPCS: 36415; 70450; 71046; 72125; 80053; 80143; 80179; 80307; 81001; 82077; 83880; 84439; 84443; 84480; 84484; 85025; 85610; 85730; 87637; 93005; 99284; A9270